=== PATIENT | female | born 1960 | race Caucasian/White ===

== ENCOUNTER 2017-04-26 21:00 | Emergency (ER) | payer MEDICAID, OTHER ==
[~2017-04-26] VITALS: Ht 157.5 cm; Wt 77.0 kg
[~2017-04-26 21:00] MED LIST: [UNRECOGNIZED DRUG - REMARK] PO
[2017-04-26] MEDS ORDERED: KETOROLAC TROMETHAMINE 60 MG/2 ML VIAL IM ONE (21:30)
[2017-04-26 21:58] LABS: APPEARANCE,URINE CLOUDY (CLEAR); GLUCOSE, URINE (UA) NEGATIVE (NEGATIVE); KETONES,URINE NEGATIVE (NEGATIVE); LEUKOCYTE ESTERASE ,URINE SMALL (NEGATIVE); OCCULT BLOOD,URINE NEGATIVE (NEGATIVE); PROTEIN,URINE NEGATIVE (NEGATIVE)
[2017-04-26 22:03] LABS: ADD UA MICROSCOPIC YES
[2017-04-26 22:17] LABS: CALCIUM OXALATE CRYSTALS,UR Many /LPF (None Seen); RBC,URINE None Seen /HPF (0-2); SQUAMOUS EPITHELIAL CELL,UR Moderate /LPF (None Seen)
[2017-04-26 22:28] VITALS: BP 162/94
== END 2017-04-26 22:33 | disposition home or self-care (01) ==
LOC: EMS 21:03
DX: S39.012A Strain of muscle, fascia and tendon of lower back, initial encounter (principal); R51 Headache; I10 Essential (primary) hypertension; X50.0XXA Overexertion from strenuous movement or load, initial encounter; Y93.89 Activity, other specified; Y92.89 Other specified places as the place of occurrence of the external cause; Y99.8 Other external cause status
CPT/HCPCS: 81001; 96372; 99283; J1885

== ENCOUNTER 2022-11-23 10:29 | Emergency (ER) | payer OTHER ==
[~2022-11-23] VITALS: Ht 154.9 cm; Wt 60.9 kg
[~2022-11-23 10:29] MED LIST changes: +ACET-3385 PO; +AMLO-519 PO; +ESOM20CA31 PO; +LEVO-72 PO; +LEVO750T68 PO; +LISI40TA9 PO; -[UNRECOGNIZED DRUG - REMARK] PO
[2022-11-23 10:35] VITALS: TEMP 98.6
[2022-11-23 11:40] LABS: BASOPHILS % (AUTO) 0.8 % (0.0-2.0); EOSINOPHILS % (AUTO) 3.3 % (1.0-6.0); HEMATOCRIT 38.8 % (36-46); HEMOGLOBIN 12.7 g/dL (12.0-16.0); LYMPHOCYTES # (AUTO) 1.8 K/uL (1.0-4.8); LYMPHOCYTES % (AUTO) 23.1 % (22.0-44.0); MEAN CORPUSCULAR HEMOGLOBIN 29.3 pg (26.0-34.0); MEAN CORPUSCULAR HGB CONC 32.8 G/dL (31.0-37.0); MEAN CORPUSCULAR VOLUME 89 fL (80-100); MONOCYTES # (AUTO) 0.5 K/uL (0.1-1.0); MONOCYTES % (AUTO) 6.6 % (2.0-9.0); NEUTROPHILS # (AUTO) 5.1 K/uL (1.8-7.7); NEUTROPHILS % (AUTO) 66.2 % (40.0-70.0); PLATELET COUNT (AUTO) 561 K/uL (150-450); RED BLOOD CELL COUNT(AUTO) 4.35 MIL/uL (4.00-5.20)
[2022-11-23 11:49] LABS: ANION GAP 9 mmol/L (8-16); CALCIUM, TOTAL 9.1 mg/dL (8.8-10.5); CARBON DIOXIDE 31 mmol/L (22-29); CHLORIDE 102 mmol/L (98-107); CREATININE 0.52 mg/dL (0.60-1.30); GLOMERULAR FILTR. RATE CALC > 60 mL/min (>60); GLUCOSE,RANDOM 100 mg/dL (70-110); POTASSIUM 4.2 mmol/L (3.5-5.1); SODIUM SERUM 142 mmol/L (136-145)
[2022-11-23 11:51] LABS: PROTHROMBIN TIME 10.2 SEC (9.4-11.6)
[2022-11-23 11:56] LABS: B-TYPE NATRIURETIC PEPTIDE 9 pg/mL (0-100)
[2022-11-23 11:58] LABS: ALANINE AMINOTRANSFERASE 37 U/L (12-78); ALBUMIN 3.6 g/dL (3.4-5.0); ALKALINE PHOSPHATASE 144 U/L (46-116); ASPARTATE AMINOTRANSFERASE 18 U/L (15-37); BILIRUBIN,TOTAL 0.3 mg/dL (0.1-1.0); TOTAL PROTEIN, SERUM 8.1 g/dL (6.4-8.2)
[2022-11-23 14:36] VITALS: BP 137/84; PULSE 71; RESP 18
[2022-11-23 14:43] LABS: APPEARANCE,URINE CLEAR (CLEAR); BILIRUBIN,URINE NEGATIVE (NEGATIVE); GLUCOSE, URINE (UA) NEGATIVE (NEGATIVE); KETONES,URINE NEGATIVE (NEGATIVE); LEUKOCYTE ESTERASE ,URINE NEGATIVE (NEGATIVE); NITRATE,URINE NEGATIVE (NEGATIVE); OCCULT BLOOD,URINE NEGATIVE (NEGATIVE); PH,URINE 7.5 (5.0-8.0); PROTEIN,URINE NEGATIVE (NEGATIVE); SPECIFIC GRAVITIY, URINE 1.012 (1.003-1.030); UROBILINOGEN,URINE <=1.0 mg/dL (<=1.0)
[2022-11-23] MEDS ORDERED: AMLO-519 PO (14:52)
[2022-11-23] MEDS ORDERED: LISI40TA9 PO (14:52)
== END 2022-11-23 15:08 | disposition home or self-care (01) ==
LOC: EMS 10:39
DX: R07.89 Other chest pain (principal); I10 Essential (primary) hypertension; F15.90 Other stimulant use, unspecified, uncomplicated; Z90.49 Acquired absence of other specified parts of digestive tract; Z90.710 Acquired absence of both cervix and uterus; Z98.890 Other specified postprocedural states
CPT/HCPCS: 71045; 80053; 81003; 83880; 84484; 85025; 85610; 85730; 93005; 99285; 36415-L1; 36415-TC

== ENCOUNTER 2023-03-14 12:16 | Emergency (ER) | payer OTHER ==
[~2023-03-14] VITALS: Ht 157.5 cm; Wt 65.0 kg
[2023-03-14 12:19] VITALS: TEMP 98.3
[2023-03-14] MEDS ORDERED: KETOROLAC TROMETHAMINE 60 MG/2 ML VIAL IM ONE (13:30)
[2023-03-14] MEDS ORDERED: AmLODIPine BESYLATE 5 MG TABLET PO ONE (15:30)
[2023-03-14] MEDS ORDERED: AMLO-258 PO (15:55)
[2023-03-14 16:15] VITALS: BP 186/89; PULSE 94; RESP 16
== END 2023-03-14 16:27 | disposition home or self-care (01) ==
LOC: EMS 13:51
DX: I10 Essential (primary) hypertension (principal); Z91.148 Patient's other noncompliance with medication regimen for other reason; F15.90 Other stimulant use, unspecified, uncomplicated; Z90.49 Acquired absence of other specified parts of digestive tract; Z90.710 Acquired absence of both cervix and uterus; Z98.890 Other specified postprocedural states
CPT/HCPCS: 99283; 96372; J1885

== ENCOUNTER 2025-03-29 10:56 | Emergency (ER) | payer MEDICARE, OTHER ==
[~2025-03-29] VITALS: Ht 154.9 cm; Wt 65.9 kg
[~2025-03-29 10:56] MED LIST changes: -ACET-3385 PO; +AMLO-258 PO; -ESOM20CA31 PO; -LEVO-72 PO; -LEVO750T68 PO; -LISI40TA9 PO
[2025-03-29 11:03] VITALS: BP 131/72; PULSE 98; RESP 18; TEMP 97.9; O2SAT 99
[2025-03-29 12:21] LABS: PLATELET COUNT (AUTO) 333 K/uL (150-450); RED BLOOD CELL COUNT(AUTO) 4.40 MIL/uL (4.00-5.20); RED CELL DISTRIBUTION WIDTH 13.8 % (11.5-14.5); WHITE BLOOD COUNT (AUTO) 11.1 K/uL (4.5-11.0)
[2025-03-29] MEDS: KETOROLAC TROMETHAMINE 60 MG/2 ML VIAL IM ONE (12:23)
[2025-03-29] MEDS: ACETAMINOPHEN 500 MG TABLET PO ONE (12:24)
[2025-03-29 12:29] LABS: CALCIUM, TOTAL 8.8 mg/dL (8.8-10.5); CREATININE 0.54 mg/dL (0.60-1.30); GLOMERULAR FILTR. RATE CALC > 60 mL/min (>60); GLUCOSE,RANDOM 123 mg/dL (70-110); SODIUM SERUM 139 mmol/L (136-145); UREA NITROGEN, BLOOD 20 mg/dL (7-18)
[2025-03-29] MEDS ORDERED: ACET-66 PO (13:09)
[2025-03-29] MEDS ORDERED: METH-659 PO (13:09)
[2025-03-29] MEDS ORDERED: IBUP-1554 PO (13:09)
== END 2025-03-29 14:07 | disposition home or self-care (01) ==
LOC: EMS 10:56
DX: G89.29 Other chronic pain (principal); M54.50 Low back pain, unspecified; I10 Essential (primary) hypertension; F15.90 Other stimulant use, unspecified, uncomplicated; Z79.899 Other long term (current) drug therapy; Z86.018 Personal history of other benign neoplasm; Z90.49 Acquired absence of other specified parts of digestive tract; Z90.710 Acquired absence of both cervix and uterus
CPT/HCPCS: 99283; 80048; 85025; 36415; 96372; J1885